=== PATIENT | female | born 1950 | race Caucasian/White ===

== ENCOUNTER → 2018-01-06 08:41 | Outpatient (CLI) | payer MEDICARE | END | disposition home or self-care (01) | LOC: D.NM 08:41 | DX: R10.9 Unspecified abdominal pain (principal) ==

== ENCOUNTER → 2018-02-14 07:17 | Outpatient (CLI) | payer MEDICARE | END | disposition home or self-care (01) | LOC: D.US 07:17 → D.RAD 07:45 → D.LAB 07:45 → D.US 08:00 | DX: R11.2 Nausea with vomiting, unspecified (principal); R10.12 Left upper quadrant pain; R10.13 Epigastric pain; K59.00 Constipation, unspecified ==

== ENCOUNTER 2018-05-02 07:51 | Outpatient (CLI) | payer MEDICARE ==
[2018-05-08] MEDS ORDERED: TRAZODONE HCL50 MG PO (10:45)
[2018-05-08] MEDS ORDERED: ZOLOFT50 MG PO (10:45)
[2018-05-08] MEDS ORDERED: OMEPRAZOLE20 M1 PO (10:45)
[2018-05-08] MEDS ORDERED: ZOLOFT25 MG PO (10:45)
[2018-05-08] MEDS ORDERED: ATIVAN0.5 MG PO (10:46)
[2018-05-08] MEDS ORDERED: VITAMIN D250000 UNIT PO (10:56)
[2018-05-09 18:50] VITALS: BMI 29.4
== END 2018-05-02 09:35 ==
LOC: D.OPS 07:51
DX: K21.9 Gastro-esophageal reflux disease without esophagitis (principal); Z01.812 Encounter for preprocedural laboratory examination

== ENCOUNTER 2018-05-09 07:40 | Day surgery (SDC) | payer MEDICARE ==
[2018-05-08 11:43] LABS: BASOPHILS 0.7 % (0-2); EOSINOPHILS 1.2 % (0-7); HEMATOCRIT 36.7 % (36.0-48.0); HEMOGLOBIN 11.8 g/dL (12-16); IMMATURE GRANULOCYTES 0.2 % (0-5); LYMPHOCYTES 19.4 % (15-50); MCH 27.6 pg (26.0-34.0); MCHC 32.2 g/dL (31.0-37.0); MCV 85.7 fL (80.0-100.0); NEUTROPHILS 71.5 % (40-80); PLATELET COUNT 202 10x3/uL (130-400); RBC 4.28 10x6/uL (4.00-5.40); RDW 15.2 % (11.5-14.5)
[2018-05-08 12:07] LABS: ANION GAP 9.5 mmol/L (8-16); CALCIUM 8.4 mg/dL (8.5-10.1); CARBON DIOXIDE 29.4 mmol/L (21.0-32.0); POTASSIUM - SERUM 3.9 mmol/L (3.5-5.1)
[~2018-05-09] VITALS: Ht 153.7 cm; Wt 69.5 kg
--- NOTE | ~2018-05-09 | OP ---
PATIENT NAME: MARIANN MARTINEZ MEDICAL RECORD: [id number] :54 LOCATION:[id number] ADMISSION DATE: SURGEON: JJ GALLEGOS MD DATE OF OPERATION: 05/09/2018 PREOPERATIVE DIAGNOSES: 1. Gastroesophageal reflux disease. 2. Hiatal hernia. 3. Hypertensive disorder. 4. Anxiety. POSTOPERATIVE DIAGNOSES: 1. Gastroesophageal reflux disease. 2. Hiatal hernia. 3. Hypertensive disorder. 4. Anxiety. PROCEDURE: Laparoscopic Lazarus with hiatal hernia repair. SURGEON: Jj Gallegos MD ELECTRONIC FIELD SERVICE ENGINEER: Obdulia Diaz APRN REPORT OF PROCEDURE: The patient's abdomen was prepped and draped in sterile fashion. A Veress needle was inserted in the left upper quadrant and the abdomen was insufflated. An 11-mm Visiport trocar was then inserted in the midline just above the umbilicus. The Veress needle was inspected and there was no sign of any injury to bowel or surrounding structures. We then placed an 11-mm trocar in the left subcostal region, a 5-mm trocar in the epigastrium, a 5-mm trocar in the right lateral subcostal region and a final 5-mm trocar in the left lateral abdomen. The patient's left lobe of the liver was then elevated. At this point, we could see that the patient had a large esophageal hiatus with approximately 3/4 of the stomach up in the hernia defect. We could pull this down, but it would easily pull back into the chest cavity. We began our dissection on the lesser curvature of the stomach, taking down the lesser omentum using Harmonic scalpel. We continued our dissection to the right side of the right karen. We then scored the peritoneum of the hernia sac and began our dissection of the hernia sac off of the medial aspect of the thoracic cavity. We continued this dissection until the entire depth of the hernia sac was pulled free and we went as far as anteriorly and posteriorly as possible. We then approached the greater curvature of the stomach and began taking down the short gastrics using Harmonic scalpel. We continued this to the right side of the right karen. Again, we scored the margin of the peritoneum of the hernia sac and then took the hernia sac out from the thoracic cavity. At this point, we had the hernia sac completely freed up and this allowed the stomach to easily rest in the abdominal cavity without tension. At least 3 to 4 cm of the distal esophagus was in the abdomen at this point. The hernia sac was then resected from the GE junction using Harmonic scalpel. The hernia defect was then reapproximated with interrupted 0 polydeks times 4 with good approximation of the tissue. We then performed a 360-degree posterior wrap of the fundus of the stomach around the distal esophagus. This was done using interrupted 0 polydeks times 3 with the top and the bottom suture incorporating a bite of the esophagus. The wrap appeared to be in good position and did not appear to be too tight. There was no sign of any active bleeding at the conclusion of the case. We then irrigated out the abdomen thoroughly with normal saline. The OPERATIVE REPORT [id number] MARIANN MARTINEZ 11-mm trocar site fascias were then closed with interrupted 0 Vicryls using a Adelso-Darrel suture passer device. The liver retractor was removed and the ports and insufflation were removed. The wounds were irrigated out with normal saline and infused with 10 mL of 0.25% Marcaine with epinephrine. The skin incisions were then closed with subcutaneous 5-0 Monocryl and dressed appropriately. COMPLICATIONS: None. CONDITION: Stable. ANESTHESIA: General endotracheal and local. BLOOD LOSS: 30 mL. TRANSINT:[id number] Voice Confirmation ID: [id number] DOCUMENT ID: [id number] JJ GALLEGOS MD CC: LEIGH MARTINEZ MD [id number] DICTATION DATE: 05/09/18 1241 FEED CRUSHER OPERATOR: 05/09/18 1333 [facility] [address] [place] [address]
[~2018-05-09 07:40] MED LIST: ATIVAN0.5 MG PO; OMEPRAZOLE20 M1 PO; TRAZODONE HCL50 MG PO; VITAMIN D250000 UNIT PO; ZOLOFT25 MG PO; ZOLOFT50 MG PO
[2018-05-09 09:12] VITALS: BP 143/76; BMI 33.1
[2018-05-09 18:50] VITALS: BP 120/60; Ht 153.7 cm; Wt 69.5 kg
[2018-05-09 21:31] VITALS: BP 91/51
[2018-05-10 05:13] VITALS: BP 121/67
[2018-05-10 05:44] LABS: BASOPHILS 0.2 % (0-2); EOSINOPHILS 0 % (0-7); HEMATOCRIT 35.8 % (36.0-48.0); HEMOGLOBIN 10.9 g/dL (12-16); IMMATURE GRANULOCYTES 0.1 % (0-5); LYMPHOCYTES 4.9 % (15-50); MCH 26.8 pg (26.0-34.0); MCHC 30.4 g/dL (31.0-37.0); MEAN PLATELET VOLUME 8.8 fL (7.4-10.4); MONOCYTES 8.1 % (2-11); NEUTROPHILS 86.7 % (40-80); PLATELET COUNT 177 10x3/uL (130-400); RBC 4.06 10x6/uL (4.00-5.40); RDW 15.4 % (11.5-14.5)
[2018-05-10 05:55] LABS: MCV 88.2 fL (80.0-100.0); WBC 9.1 10x3/uL (4.8-10.8)
[2018-05-10 05:58] LABS: CALC OSMOLALITY 281 mosm/kg (275-300); CALCIUM 8.1 mg/dL (8.5-10.1); CARBON DIOXIDE 26.6 mmol/L (21.0-32.0); CHLORIDE - SERUM 105 mmol/L (98-107); CREATININE - SERUM 0.8 mg/dL (0.6-1.3); GLUCOSE 111 mg/dL (74-106); POTASSIUM - SERUM 4.1 mmol/L (3.5-5.1); SODIUM 141 mmol/L (136-145); eGFR NON AFRICAN AMERICAN 76 mL/min (90-120)
[2018-05-10 06:14] LABS: UREA NITROGEN 12 mg/dL (7-18)
[2018-05-10 08:20] VITALS: BP 130/69
[2018-05-10 11:51] VITALS: BP 130/68
[2018-05-10] MEDS ORDERED: NORCO 10-325 TA1 TAB PO (13:13)
[2018-05-10] MEDS ORDERED: REGLAN10 MG PO (13:13)
== END 2018-05-10 15:00 | disposition home or self-care (01) ==
LOC: D.OPS 07:40 → D.MS 07:40 → D.PAN 08:00 → D.OPS 08:00 → D.MS 13:36 → D.OPS 05-10 15:00
PROVIDERS: Surgery
DX: K21.9 Gastro-esophageal reflux disease without esophagitis (principal); K44.9 Diaphragmatic hernia without obstruction or gangrene; I10 Essential (primary) hypertension; F41.9 Anxiety disorder, unspecified; Z01.812 Encounter for preprocedural laboratory examination